=== PATIENT | female | born 1960 | race Caucasian/White ===

== ENCOUNTER 2016-02-26 13:18 | Emergency (ER) | payer BC ==
[~2016-02-26 13:18] MED LIST: ALIVTAB3 PO; CLAR1TAB2 PO; PREV30CA11 PO
[2016-02-26] MEDS ORDERED: ADACEL/BOOSTRIX VACCINE (DIPHTH/PERTUSS/ACELL/TETANUS)0.5ML SYR (90715) As Ordered ONE (14:47)
--- NOTE | 2016-02-26 14:53 | EDDOCDS ---
Nurse's Notes [facility] Name: Layne English Age: 55 yrs Sex: Female : 1960 Arrival Date: 02/26/2016 Time: 13:18 Bed PR2 Private MD: Elena Sales A Diagnosis: Laceration without foreign body of left index finger with damage to nail-AVULSION Presentation: 02/25 13:21 Presenting complaint: Patient states: states that cut her left index finger on ml6 mandolin. Adult Sepsis Screening: The patient does not have new or worsening altered mentation. Patient's respiratory rate is less than 22. Systolic blood pressure is greater than 100. Patient has a qSOFA score of 0- Negative Sepsis Screen. Suicide/Homicide risk assessment- the patient denies having any suicidal and/or homicidal ideations and does not present with any other emotional, behavioral or mental health complaints. Status: Patient is not a healthcare advisory services manager or dependent. Transition of care: patient was not received from another setting of care. 13:21 Acuity: SAI Level 4 ml6 13:21 Method Of Arrival: Walkin/Carried/Asstd ml6 Triage Assessment: 13:23 General: Appears in no apparent distress, Behavior is anxious, cooperative. Pain: ml6 Location: palmar aspect of distal phalanx of left index finger Pain currently is 8 out of 10 on a pain scale. Pain does not radiate. Quality of pain is described as aching, Pain began 30 min ago Is continuous Alleviated by nothing. Aggravated by increased activity. HIV screening NA for this visit Offered previously. Neurological: No deficits noted. Cardiovascular: No deficits noted. Respiratory: No deficits noted. Musculoskeletal: Circulation, motion, and sensation intact Capillary refill < 3 seconds is brisk in bilateral fingers toes Range of motion intact in all extremities. No deformity noted Swelling absent. Injury Description: Avulsion sustained to palmar aspect of distal phalanx of right index finger is. Historical: - Allergies: SULFA (SULFONAMIDES) (Anaphylaxis); - Home Meds: 1. lansoprazole 30 mg oral cpDR 1 cap once daily (Last dose: 02/26/2016 07:00) - PMHx: GERD; - PSHx: Cholecystectomy; Appendectomy; Laparoscopy; bone spur left foot; - Social history: Smoking status: Patient states was never smoker of tobacco. No barriers to communication noted, Speaks appropriately for age. - Family history: Not pertinent. - : Unable to assess if pt is on anticoagulants. Home medication list is obtained from the patient. - Exposure Risk Screening:: None identified. Screenin:51 Screening information is obtained from the patient. Fall risk: No risks identified. js13 Assistance ADL's: requires no assistance with activities of daily living. Abuse/DV Screen: The patient / caregiver reports he/she is: not in a situation that causes fear, pain or injury. Nutritional screening: No deficits noted. Advance Directives: There is no active DNR order. home support is adequate. Assessment: 14:51 General: Appears in no apparent distress, comfortable, Behavior is appropriate for age, js13 cooperative. Pain: Pain currently is 4 out of 10 on a pain scale. Neurological: Level of Consciousness is awake, alert. Respiratory: Airway is patent Respiratory effort is even, unlabored, Respiratory pattern is regular, symmetrical. Derm: Skin is pink, warm & dry. Musculoskeletal: Circulation, motion, and sensation intact Range of motion limited in palmar aspect of distal phalanx of left index finger. Vital Signs: 13:19 BP 165 / 91; Pulse 94; Resp 18 S; Temp 96.8(O); Pulse Ox 95% on R/A; Weight 90.72 kg gr2 (R); Height 5 ft. 3 in. (160.02 cm) (R); Pain 6/10; 14:49 BP 178 / 98; Pulse 81; Resp 20; Temp 97.4; Pulse Ox 96% ; Pain 9/10; jam1 13:19 Body Mass Index 35.43 (90.72 kg, 160.02 cm) gr2 Vitals: 13:19 Log In Time: February 26, 2016 at 13:19. gr2 ED Course: 13:18 Patient visited by Jovanna Naranjo. gr2 13:18 Elena Sales is Private Physician. gr2 13:18 Patient moved to Waiting gr2 13:21 Patient visited by Jovanna Naranjo. gr2 13:21 Patient moved to Pre RCE gr2 13:22 Triage Initiated ml6 13:25 Patient moved to PR2 / 26 ml6 14:13 Gus Sanchez PA is PHCP. btw 14:13 Benji Ga MD is Attending Physician. btw 14:14 Patient visited by Gus Sanchez PA. btw 14:43 Elena Sales is Referral Physician. btw 14:51 The patient / caregiver is instructed regarding the plan of care and ED course. js13 14:51 No IV's were initiated during this patient's visit. No procedures done that require js13 assistance. Administered Medications: 14:50 Drug: Tetanus- Diptheria-Acellular Pertussis 0.5 ml [diphth,pertussis(acel),tetanus 2.5 js13 Lf unit-8 mcg-5 Lf/0.5mL IM syringe (0.5 mL)] {Production Roustabout: [employer]. Exp: 04/05/2018. Lot #: [id number]. } Route: IM; Site: right deltoid; 14:51 Follow up: Response: No Adverse Reaction js13 Order Results: There are currently no results for this order. Outcome: 14:44 Discharge ordered by Provider. btw 14:51 Discharge Assessment: Patient awake, alert and oriented x 3. No cognitive and/or js13 functional deficits noted. Patient verbalized understanding of disposition instructions. patient administered narcotics - no. The following High Risk Discharge criteria are identified: None. Discharged to home ambulatory. Condition: stable. Discharge instructions given to patient, Instructed on discharge instructions, follow up and referral plans. medication usage, Demonstrated understanding of instructions, medications, Pt was receptive of discharge instructions/ teaching. No special radiology studies were completed. Property :Personal belongings accompany Pt. 14:53 Patient left the ED. js13 Signatures: Katie Castellanos, OR RN OR RN jam1 Иван Moncada, RN RN ml6 Gus Sanchez PA PA btw Genia GradyRN RN js13 Jovanna Naranjo gr2 MTDD
--- NOTE | 2016-02-26 14:53 | EDDOCDS ---
Physician Documentation [facility] Name: Layne English Age: 55 yrs Sex: Female : 1960 Arrival Date: 02/26/2016 Time: 13:18 Bed PR Private MD: Elena Sales A Disposition: 02/26/16 14:44 Discharged to Home/Self Care. Impression: Laceration without foreign body of left index finger with damage to nail - AVULSION. - Condition is Stable. - Discharge Instructions: Nail Avulsion Injury, Deep Skin Avulsion, VIS, Tetanus, Diphtheria (Td) - CDC. - Medication Reconciliation, Local Pharmacy Hours form. - Follow up: Elena Sales; When: 2 - 3 days; Reason: Wound/Symptom Recheck, Further diagnostic work-up, Recheck today's complaints, Continuance of care. - Problem is new. - Symptoms have improved. Historical: - Allergies: SULFA (SULFONAMIDES) (Anaphylaxis); - Home Meds: 1. lansoprazole 30 mg oral cpDR 1 cap once daily (Last dose: 02/26/2016 07:00) - PMHx: GERD; - PSHx: Cholecystectomy; Appendectomy; Laparoscopy; bone spur left foot; - Social history: Smoking status: Patient states was never smoker of tobacco. No barriers to communication noted, Speaks appropriately for age. - Family history: Not pertinent. - : Unable to assess if pt is on anticoagulants. Home medication list is obtained from the patient. - Exposure Risk Screening:: None identified. Vital Signs: 02/25 13:19 BP 165 / 91; Pulse 94; Resp 18 S; Temp 96.8(O); Pulse Ox 95% on R/A; Weight 90.72 kg / gr2 200 lbs (R); Height 5 ft. 3 in. (160.02 cm) (R); Pain 6/10; 14:49 BP 178 / 98; Pulse 81; Resp 20; Temp 97.4; Pulse Ox 96% ; Pain 9/10; jam1 13:19 Body Mass Index 35.43 (90.72 kg, 160.02 cm) gr2 Procedures: 14:41 Laceration repair:. btw Laceration: 14:41 Wound Repair of 1cm ( 0.4in ) avulsed laceration to left index finger, palmar aspect of btw distal phalanx of left index finger and left index fingernail. Profuse bleeding noted.. Distal neuro/vascular/tendon intact. Anesthesia: None with None. Wound prep: Extensive cleansing with hibiclenz by provider, Wound irrigation with saline by provider. Skin closed with 1 thin layer Gelfoam. Dressed with tube gauze, Telfa. Patient tolerated fair. MDM: 13:38 Fingers Ordered. EDMS 14:41 Tetanus- Diptheria-Acellular Pertussis 0.5 ml IM once; Routine booster 10-64yrs, >64 btw with child contact [employer] ordered. Administered Medications: 14:50 Drug: Tetanus- Diptheria-Acellular Pertussis 0.5 ml [diphth,pertussis(acel),tetanus 2.5 js13 Lf unit-8 mcg-5 Lf/0.5mL IM syringe (0.5 mL)] {Founder: [employer]. Exp: 04/05/2018. Lot #: [id number]. } Route: IM; Site: right deltoid; 14:51 Follow up: Response: No Adverse Reaction js13 Signatures: Dispatcher [employer] EDMS Иван Moncada, RN RN ml6 Gus Sanchez PA PA btw Genia GradyRN RN js13 MTDD
--- NOTE | 2016-02-26 15:48 | REP ---
Left index finger series: Four views. History: Soft tissue laceration. Findings: There is a soft tissue deficit at the distal tuft of the index finger. No bony fracture or opaque foreign body seen. Impression: Soft tissue amputation injury distal phalanx. No fracture or opaque foreign body seen. Signed by Javad Duque MD 02/26/2016 04:03 P
--- NOTE | 2016-02-28 15:54 | EDDOCDS ---
Physician Documentation [facility] Name: Layne English Age: 55 yrs Sex: Female : 1960 Arrival Date: 02/26/2016 Time: 13:18 Bed PR Private MD: Elena Sales A Disposition: 02/26/16 14:44 Discharged to Home/Self Care. Impression: Laceration without foreign body of left index finger with damage to nail - AVULSION. - Condition is Stable. - Discharge Instructions: Nail Avulsion Injury, Deep Skin Avulsion, VIS, Tetanus, Diphtheria (Td) - CDC. - Medication Reconciliation, Local Pharmacy Hours form. - Follow up: Elena Sales; When: 2 - 3 days; Reason: Wound/Symptom Recheck, Further diagnostic work-up, Recheck today's complaints, Continuance of care. - Problem is new. - Symptoms have improved. Historical: - Allergies: SULFA (SULFONAMIDES) (Anaphylaxis); - Home Meds: 1. lansoprazole 30 mg oral cpDR 1 cap once daily (Last dose: 02/26/2016 07:00) - PMHx: GERD; - PSHx: Cholecystectomy; Appendectomy; Laparoscopy; bone spur left foot; - Social history: Smoking status: Patient states was never smoker of tobacco. No barriers to communication noted, Speaks appropriately for age. - Family history: Not pertinent. - : Unable to assess if pt is on anticoagulants. Home medication list is obtained from the patient. - Exposure Risk Screening:: None identified. Vital Signs: 02/25 13:19 BP 165 / 91; Pulse 94; Resp 18 S; Temp 96.8(O); Pulse Ox 95% on R/A; Weight 90.72 kg / gr2 200 lbs (R); Height 5 ft. 3 in. (160.02 cm) (R); Pain 6/10; 14:49 BP 178 / 98; Pulse 81; Resp 20; Temp 97.4; Pulse Ox 96% ; Pain 9/10; jam1 13:19 Body Mass Index 35.43 (90.72 kg, 160.02 cm) gr2 Procedures: 14:41 Laceration repair:. btw Laceration: 14:41 Wound Repair of 1cm ( 0.4in ) avulsed laceration to left index finger, palmar aspect of btw distal phalanx of left index finger and left index fingernail. Profuse bleeding noted.. Distal neuro/vascular/tendon intact. Anesthesia: None with None. Wound prep: Extensive cleansing with hibiclenz by provider, Wound irrigation with saline by provider. Skin closed with 1 thin layer Gelfoam. Dressed with tube gauze, Telfa. Patient tolerated fair. MDM: 13:38 Fingers Ordered. EDMS 14:41 Tetanus- Diptheria-Acellular Pertussis 0.5 ml IM once; Routine booster 10-64yrs, >64 btw with child contact [employer] ordered. 15:06 [facility] Payment Agreement was scanned into [employer] and attached to record. lg 15:37 Financial registration complete. wong 21:57 T-Sheet-- Draft Copy was scanned into [employer]ogram and attached to record. klr Administered Medications: 14:50 Drug: Tetanus- Diptheria-Acellular Pertussis 0.5 ml [diphth,pertussis(acel),tetanus 2.5 js13 Lf unit-8 mcg-5 Lf/0.5mL IM syringe (0.5 mL)] {Assistant Professor Of Chemistry: [employer]. Exp: 04/05/2018. Lot #: [id number]. } Route: IM; Site: right deltoid; 14:51 Follow up: Response: No Adverse Reaction js13 Signatures: Dispatcher [employer] EDMS Maria Fernanda Galarza Reg Reg lg Lowe, Matthew, RN RN ml6 Gus Sanchez PA PA btw Genia Grady RN RN js13 Kylah Cisneros Kathie klr The chart was reviewed and I authenticate all verbal orders and agree with the evaluation and treatment provided.Attachments: 15:06 [facility] Payment Agreement lg 21:57 T-Sheet-- Draft Copy klr Chart Complete MTDD
--- NOTE | 2016-02-28 15:54 | EDDOCDS ---
Physician Documentation [facility] Name: Layne English Age: 55 yrs Sex: Female : 1960 Arrival Date: 02/26/2016 Time: 13:18 Bed PR Private MD: Elena Sales A Disposition: 02/26/16 14:44 Discharged to Home/Self Care. Impression: Laceration without foreign body of left index finger with damage to nail - AVULSION. - Condition is Stable. - Discharge Instructions: Nail Avulsion Injury, Deep Skin Avulsion, VIS, Tetanus, Diphtheria (Td) - CDC. - Medication Reconciliation, Local Pharmacy Hours form. - Follow up: Elena Sales; When: 2 - 3 days; Reason: Wound/Symptom Recheck, Further diagnostic work-up, Recheck today's complaints, Continuance of care. - Problem is new. - Symptoms have improved. Historical: - Allergies: SULFA (SULFONAMIDES) (Anaphylaxis); - Home Meds: 1. lansoprazole 30 mg oral cpDR 1 cap once daily (Last dose: 02/26/2016 07:00) - PMHx: GERD; - PSHx: Cholecystectomy; Appendectomy; Laparoscopy; bone spur left foot; - Social history: Smoking status: Patient states was never smoker of tobacco. No barriers to communication noted, Speaks appropriately for age. - Family history: Not pertinent. - : Unable to assess if pt is on anticoagulants. Home medication list is obtained from the patient. - Exposure Risk Screening:: None identified. Vital Signs: 02/25 13:19 BP 165 / 91; Pulse 94; Resp 18 S; Temp 96.8(O); Pulse Ox 95% on R/A; Weight 90.72 kg / gr2 200 lbs (R); Height 5 ft. 3 in. (160.02 cm) (R); Pain 6/10; 14:49 BP 178 / 98; Pulse 81; Resp 20; Temp 97.4; Pulse Ox 96% ; Pain 9/10; jam1 13:19 Body Mass Index 35.43 (90.72 kg, 160.02 cm) gr2 Procedures: 14:41 Laceration repair:. btw Laceration: 14:41 Wound Repair of 1cm ( 0.4in ) avulsed laceration to left index finger, palmar aspect of btw distal phalanx of left index finger and left index fingernail. Profuse bleeding noted.. Distal neuro/vascular/tendon intact. Anesthesia: None with None. Wound prep: Extensive cleansing with hibiclenz by provider, Wound irrigation with saline by provider. Skin closed with 1 thin layer Gelfoam. Dressed with tube gauze, Telfa. Patient tolerated fair. MDM: 13:38 Fingers Ordered. EDMS 14:41 Tetanus- Diptheria-Acellular Pertussis 0.5 ml IM once; Routine booster 10-64yrs, >64 btw with child contact [employer] ordered. 15:06 [facility] Payment Agreement was scanned into [employer] and attached to record. lg 15:37 Financial registration complete. wong 21:57 T-Sheet-- Draft Copy was scanned into [employer] and attached to record. klr Administered Medications: 14:50 Drug: Tetanus- Diptheria-Acellular Pertussis 0.5 ml [diphth,pertussis(acel),tetanus 2.5 js13 Lf unit-8 mcg-5 Lf/0.5mL IM syringe (0.5 mL)] {Furnace Puncher: [employer]. Exp: 04/05/2018. Lot #: [id number]. } Route: IM; Site: right deltoid; 14:51 Follow up: Response: No Adverse Reaction js13 Signatures: Dispatcher [employer] EDMS Maria Fernanda Galarza Reg Reg lg Lowe, Matthew, RN RN ml6 Gus Sanchez PA PA btw Genia Grady RN RN js13 Kylah Cisneros Kathie klr The chart was reviewed and I authenticate all verbal orders and agree with the evaluation and treatment provided.Attachments: 15:06 [facility] Payment Agreement lg 21:57 T-Sheet-- Draft Copy klr Chart Complete MTDD
--- NOTE | 2016-02-28 15:54 | EDDOCDS ---
Nurse's Notes Name: Layne English Age: 55 yrs Sex: Female : 1960 Arrival Date: 02/26/2016 Time: 13:18 Bed PR2 Private MD: Elena Sales A Diagnosis: Laceration without foreign body of left index finger with damage to nail-AVULSION Presentation: 02/25 13:21 Presenting complaint: Patient states: states that cut her left index finger on ml6 mandolin. Adult Sepsis Screening: The patient does not have new or worsening altered mentation. Patient's respiratory rate is less than 22. Systolic blood pressure is greater than 100. Patient has a qSOFA score of 0- Negative Sepsis Screen. Suicide/Homicide risk assessment- the patient denies having any suicidal and/or homicidal ideations and does not present with any other emotional, behavioral or mental health complaints. Status: Patient is not a event services manager or dependent. Transition of care: patient was not received from another setting of care. 13:21 Acuity: SAI Level 4 ml6 13:21 Method Of Arrival: Walkin/Carried/Asstd ml6 Triage Assessment: 13:23 General: Appears in no apparent distress, Behavior is anxious, cooperative. Pain: ml6 Location: palmar aspect of distal phalanx of left index finger Pain currently is 8 out of 10 on a pain scale. Pain does not radiate. Quality of pain is described as aching, Pain began 30 min ago Is continuous Alleviated by nothing. Aggravated by increased activity. HIV screening NA for this visit Offered previously. Neurological: No deficits noted. Cardiovascular: No deficits noted. Respiratory: No deficits noted. Musculoskeletal: Circulation, motion, and sensation intact Capillary refill < 3 seconds is brisk in bilateral fingers toes Range of motion intact in all extremities. No deformity noted Swelling absent. Injury Description: Avulsion sustained to palmar aspect of distal phalanx of right index finger is. Historical: - Allergies: SULFA (SULFONAMIDES) (Anaphylaxis); - Home Meds: 1. lansoprazole 30 mg oral cpDR 1 cap once daily (Last dose: 02/26/2016 07:00) - PMHx: GERD; - PSHx: Cholecystectomy; Appendectomy; Laparoscopy; bone spur left foot; - Social history: Smoking status: Patient states was never smoker of tobacco. No barriers to communication noted, Speaks appropriately for age. - Family history: Not pertinent. - : Unable to assess if pt is on anticoagulants. Home medication list is obtained from the patient. - Exposure Risk Screening:: None identified. Screenin:51 Screening information is obtained from the patient. Fall risk: No risks identified. js13 Assistance ADL's: requires no assistance with activities of daily living. Abuse/DV Screen: The patient / caregiver reports he/she is: not in a situation that causes fear, pain or injury. Nutritional screening: No deficits noted. Advance Directives: There is no active DNR order. home support is adequate. Assessment: 14:51 General: Appears in no apparent distress, comfortable, Behavior is appropriate for age, js13 cooperative. Pain: Pain currently is 4 out of 10 on a pain scale. Neurological: Level of Consciousness is awake, alert. Respiratory: Airway is patent Respiratory effort is even, unlabored, Respiratory pattern is regular, symmetrical. Derm: Skin is pink, warm & dry. Musculoskeletal: Circulation, motion, and sensation intact Range of motion limited in palmar aspect of distal phalanx of left index finger. Vital Signs: 13:19 BP 165 / 91; Pulse 94; Resp 18 S; Temp 96.8(O); Pulse Ox 95% on R/A; Weight 90.72 kg gr2 (R); Height 5 ft. 3 in. (160.02 cm) (R); Pain 6/10; 14:49 BP 178 / 98; Pulse 81; Resp 20; Temp 97.4; Pulse Ox 96% ; Pain 9/10; jam1 13:19 Body Mass Index 35.43 (90.72 kg, 160.02 cm) gr2 Vitals: 13:19 Log In Time: February 26, 2016 at 13:19. gr2 ED Course: 13:18 Patient visited by Jovanna Naranjo. gr2 13:18 Elena Sales is Private Physician. gr2 13:18 Patient moved to Waiting gr2 13:21 Patient visited by Jovanna Naranjo. gr2 13:21 Patient moved to Pre RCE gr2 13:22 Triage Initiated ml6 13:25 Patient moved to PR2 / 26 ml6 14:13 Gus Sanchez PA is PHCP. btw 14:13 Benji Ga MD is Attending Physician. btw 14:14 Patient visited by Gus Sanchez PA. btw 14:43 Elena Sales is Referral Physician. btw 14:51 The patient / caregiver is instructed regarding the plan of care and ED course. js13 14:51 No IV's were initiated during this patient's visit. No procedures done that require js13 assistance. 15:06 [facility] Payment Agreement was scanned into [employer] and attached to record. 16:20 Fingers Returned. EDAR 21:57 T-Sheet-- Draft Copy was scanned into [employer] and attached to record. klr Administered Medications: 14:50 Drug: Tetanus- Diptheria-Acellular Pertussis 0.5 ml [diphth,pertussis(acel),tetanus 2.5 js13 Lf unit-8 mcg-5 Lf/0.5mL IM syringe (0.5 mL)] {Core Inserter: [employer]. Exp: 04/05/2018. Lot #: [id number]. } Route: IM; Site: right deltoid; 14:51 Follow up: Response: No Adverse Reaction js13 Order Results: Radiology Order: Fingers Test: Fingers REASON FOR EXAMINATION: left index finger tip injury; Left index finger series: Four views.; ; History: Soft tissue laceration.; ; Findings: There is a soft tissue deficit at the distal tuft of the index finger.; No bony fracture or opaque foreign body seen.; ; Impression:; ; Soft tissue amputation injury distal phalanx. No fracture or opaque foreign body; seen.; ; ; Signed by; Javad Duque MD 02/26/2016 04:03 P; Outcome: 14:44 Discharge ordered by Provider. btw 14:51 Discharge Assessment: Patient awake, alert and oriented x 3. No cognitive and/or js13 functional deficits noted. Patient verbalized understanding of disposition instructions. patient administered narcotics - no. The following High Risk Discharge criteria are identified: None. Discharged to home ambulatory. Condition: stable. Discharge instructions given to patient, Instructed on discharge instructions, follow up and referral plans. medication usage, Demonstrated understanding of instructions, medications, Pt was receptive of discharge instructions/ teaching. No special radiology studies were completed. Property :Personal belongings accompany Pt. 14:53 Patient left the ED. js13 Signatures: Dispatcher [employer] EDMS Katie Castellanos, BRIM POUNCING MACHINE OPERATOR BRIM POUNCING MACHINE OPERATOR jam1 Maria Fernanda Galarza, Reg Reg lg Иван Moncada, JOSE FRANCISCO RN ml6 Gus Sanchez PA PA btw Sullivan, Jennifer, RN RN js13 Jovanna Naranjo gr2 Lidia Marion Chart Complete MTDD
== END 2016-02-26 14:53 | disposition home or self-care (01) ==
LOC: M ED 13:18
DX: S61.211A Laceration without foreign body of left index finger without damage to nail, initial encounter (principal); W26.8XXA Contact with other sharp object(s), not elsewhere classified, initial encounter; Y92.010 Kitchen of single-family (private) house as the place of occurrence of the external cause; Y93.G1 Activity, food preparation and clean up; Y99.8 Other external cause status; K21.9 Gastro-esophageal reflux disease without esophagitis; Z79.899 Other long term (current) drug therapy; Z88.2 Allergy status to sulfonamides

== ENCOUNTER → 2017-06-06 | Outpatient (CLI) | payer BC ==
[2017-06-06 13:12] LABS: BASO # 0.1 10^3/uL (0.0-0.2); BASO % 0.5 % (0.0-1.0); EOS # 0.1 10^3/uL (0.0-0.50); HEMOGLOBIN 13.5 g/dl (12.0-15.5); IMMATURE GRANULOCYTE % 0.6 % (0-3.0); LYMPH # 2.3 10^3/uL (1.5-4.5); LYMPH % 18.4 % (24.0-44.0); MEAN CORPUSCULAR HEMOGLOBIN 28.9 pg (27.0-33.0); MEAN CORPUSCULAR HGB CONC 32.1 g/dl (32.0-36.5); MEAN CORPUSCULAR VOLUME 89.9 fl (80.0-96.0); MONO # 0.8 10^3/uL (0.0-0.8); MONO % 6.2 % (0.0-5.0); NEUTROPHILS # 9.1 10^3/uL (1.8-7.7); NEUTROPHILS % 73.3 % (36.0-66.0); PLATELET COUNT, AUTOMATED 277 10^3/uL (150-450); RED BLOOD COUNT 4.67 10^6/uL (4.00-5.40); RED CELL DISTRIBUTION WIDTH 14.1 % (11.5-14.5); WHITE BLOOD COUNT 12.4 10^3/uL (4.0-10.0)
[2017-06-06 13:34] LABS: ERYTHROCYTE SEDIMENTATION RATE 4 mm/hr (0-30)
[2017-06-06 13:37] LABS: CONTROL LINE MONO RF C INT CTR LINE PRESENT; MONO REFLEX EBV COMP NEGATIVE (NEGATIVE)
[2017-06-06 13:55] LABS: FREE T4 1.13 NG/DL (0.76-1.46)
[2017-06-12 00:06] LABS: ANTINUCLEAR ANTIBODIES DIRECT Negative (Negative); EBV VIRAL CAPSID AG IgM <36.0 U/mL (0.0-35.9); HLA-B27 Negative (.); Lyme Disease IgG/IgM Antibodie <0.91 ISR (0.00-0.90); Lyme Disease IgM Ab Quantitati <0.80 index (0.00-0.79)
== END ==
LOC: M SMT 10:40
DX: R21 Rash and other nonspecific skin eruption (principal); M25.50 Pain in unspecified joint; L40.8 Other psoriasis
CPT/HCPCS: 84443

== ENCOUNTER → 2017-06-18 | Outpatient (REF) | payer BC | LOC: M LAB REF 17:46 | DX: J03.90 Acute tonsillitis, unspecified (principal) | CPT/HCPCS: 87070 ==

== ENCOUNTER → 2018-03-31 | Outpatient (REF) | payer BC ==
[~2018-03-31] MED LIST changes: +PREV1CAP PO; -PREV30CA11 PO
[2018-03-31 12:25] LABS: BASO # 0.1 10^3/uL (0.0-0.2); BASO % 0.9 % (0.0-1.0); EOS # 0.1 10^3/uL (0.0-0.50); EOS % 2.1 % (0.0-3.0); HEMOGLOBIN 13.1 g/dl (12.0-15.5); LYMPH # 1.7 10^3/uL (1.5-4.5); LYMPH % 31.6 % (24.0-44.0); MEAN CORPUSCULAR HEMOGLOBIN 28.9 pg (27.0-33.0); MEAN CORPUSCULAR VOLUME 90.5 fl (80.0-96.0); MONO # 0.5 10^3/uL (0.0-0.8); NEUTROPHILS # 2.9 10^3/uL (1.8-7.7); PLATELET COUNT, AUTOMATED 237 10^3/uL (150-450); RED BLOOD COUNT 4.53 10^6/uL (4.00-5.40); WHITE BLOOD COUNT 5.3 10^3/uL (4.0-10.0)
[2018-03-31 12:44] LABS: ALBUMIN 3.7 GM/DL (3.2-5.2); ALT/SGPT 42 U/L (12-78); BILIRUBIN,TOTAL 0.4 MG/DL (0.2-1.0); BLOOD UREA NITROGEN 15 MG/DL (7-18); CARBON DIOXIDE LEVEL 27 MEQ/L (21-32); CHLORIDE LEVEL 108 MEQ/L (98-107); CHOLESTEROL LEVEL 251 MG/DL (<200); CHOLESTEROL RISK RATIO 3.302 (<5); CREATININE FOR GFR 0.74 MG/DL (0.55-1.30); FREE T4 1.07 NG/DL (0.76-1.46); GLOMERULAR FILTRATION RATE > 60.0 (>51); GLUCOSE, FASTING 90 MG/DL (70-100); HDL CHOLESTEROL 76 MG/DL (>40); LDL CHOLESTEROL 156 MG/DL (<100); NON-HDL-C 175 MG/DL; POTASSIUM SERUM 4.3 MEQ/L (3.5-5.1); SODIUM LEVEL 141 MEQ/L (136-145); TOTAL PROTEIN 6.9 GM/DL (6.4-8.2); TRIGLYCERIDES LEVEL 95 MG/DL (<150)
== END ==
LOC: M LABDRAW1 08:52
PROVIDERS: ATTEND Family Medicine
DX: Z13.29 Encounter for screening for other suspected endocrine disorder (principal); Z13.220 Encounter for screening for lipoid disorders; Z13.0 Encounter for screening for diseases of the blood and blood-forming organs and certain disorders involving the immune mechanism

== ENCOUNTER → 2018-07-11 | Outpatient (REF) | payer BC ==
[2018-07-11 11:21] LABS: CHOLESTEROL RISK RATIO 3.357 (<5)
== END ==
LOC: M LABDRAW1 10:30
PROVIDERS: ATTEND Family Medicine
DX: E78.00 Pure hypercholesterolemia, unspecified (principal)

== ENCOUNTER → 2019-04-28 | Outpatient (REF) | payer BC | LOC: M LABDRAW1 09:44 | PROVIDERS: ATTEND Allergy & Immunology Allergy | DX: T78.1XXA Other adverse food reactions, not elsewhere classified, initial encounter (principal); L50.9 Urticaria, unspecified ==

== ENCOUNTER → 2019-07-20 | Outpatient (CLI) | payer BC ==
[2019-07-20 11:29] LABS: BASO # 0.1 10^3/uL (0.0-0.2); BASO % 1.2 % (0.0-1.0); EOS # 0.1 10^3/uL (0.0-0.5); EOS % 1.8 % (0.0-3.0); HEMOGLOBIN 13.6 g/dl (12.0-15.5); LYMPH # 1.8 10^3/uL (1.5-5.0); LYMPH % 34.4 % (24.0-44.0); MEAN CORPUSCULAR HEMOGLOBIN 29.9 pg (27.0-33.0); MEAN CORPUSCULAR HGB CONC 33.2 g/dl (32.0-36.5); MEAN CORPUSCULAR VOLUME 90.1 fl (80.0-96.0); MONO # 0.5 10^3/uL (0.0-0.8); MONO % 9.6 % (0.0-5.0); NEUTROPHILS # 2.7 10^3/uL (1.5-8.5); NEUTROPHILS % 52.6 % (36.0-66.0); PLATELET COUNT, AUTOMATED 252 10^3/uL (150-450); RED BLOOD COUNT 4.55 10^6/uL (4.00-5.40); WHITE BLOOD COUNT 5.1 10^3/uL (4.0-10.0)
[2019-07-20 12:30] LABS: ALBUMIN 3.6 GM/DL (3.2-5.2); ALT/SGPT 39 U/L (12-78); BILIRUBIN,TOTAL 0.5 MG/DL (0.2-1.0); BLOOD UREA NITROGEN 16 MG/DL (7-18); CARBON DIOXIDE LEVEL 27 MEQ/L (21-32); CHLORIDE LEVEL 108 MEQ/L (98-107); CHOLESTEROL LEVEL 258 MG/DL (<200); CHOLESTEROL RISK RATIO 3.265 (<5); CREATININE FOR GFR 0.73 MG/DL (0.55-1.30); FREE T4 1.03 NG/DL (0.76-1.46); GLOMERULAR FILTRATION RATE > 60.0 (>51); GLUCOSE, FASTING 88 MG/DL (70-100); HDL CHOLESTEROL 79 MG/DL (>40); LDL CHOLESTEROL 166 MG/DL (<100); NON-HDL-C 179 MG/DL; POTASSIUM SERUM 4.6 MEQ/L (3.5-5.1); SODIUM LEVEL 142 MEQ/L (136-145); TOTAL PROTEIN 6.9 GM/DL (6.4-8.2); TRIGLYCERIDES LEVEL 64 MG/DL (<150)
== END ==
LOC: M LRY 09:30
PROVIDERS: ATTEND Family Medicine
DX: K21.9 Gastro-esophageal reflux disease without esophagitis (principal); E78.00 Pure hypercholesterolemia, unspecified

== ENCOUNTER → 2020-04-13 | Outpatient (CLI) | payer BC ==
[2020-04-13 14:01] LABS: BASO % 0.6 % (0.0-1.0); EOS # 0.1 10^3/uL (0.0-0.5); EOS % 1.3 % (0.0-3.0); HEMATOCRIT 42.5 % (36.0-47.0); HEMOGLOBIN 13.5 g/dl (12.0-15.5); LYMPH % 32.3 % (24.0-44.0); MEAN CORPUSCULAR HEMOGLOBIN 29.2 pg (27.0-33.0); MEAN CORPUSCULAR HGB CONC 31.8 g/dl (32.0-36.5); MEAN CORPUSCULAR VOLUME 91.8 fl (80.0-96.0); MONO # 0.6 10^3/uL (0.0-0.8); MONO % 8.9 % (2.0-8.0); NEUTROPHILS # 3.5 10^3/uL (1.5-8.5); NEUTROPHILS % 56.7 % (36.0-66.0); PLATELET COUNT, AUTOMATED 223 10^3/uL (150-450); RED BLOOD COUNT 4.63 10^6/uL (4.00-5.40); WHITE BLOOD COUNT 6.2 10^3/uL (4.0-10.0)
[2020-04-13 14:27] LABS: FREE T4 1.07 NG/DL (0.76-1.46)
[2020-04-13 14:28] LABS: THYROGLOBULIN ANTIBODY < 15.0 U/ML (<60.0); THYROID PEROXIDASE ANTIBODY < 28.0 U/ML (<60.0)
== END ==
LOC: M PLALAB 11:10
PROVIDERS: ATTEND Family Medicine
DX: R49.0 Dysphonia (principal); E04.9 Nontoxic goiter, unspecified

== ENCOUNTER → 2020-04-28 | Outpatient (CLI) | payer BC ==
--- NOTE | 2020-04-28 15:08 | REP ---
INDICATION: NONTOXIC GOITER, UNSPECIFIED. COMPARISON: None. TECHNIQUE: Real-time sonographic evaluation of thyroid performed. FINDINGS: Right lobe of the thyroid measures 5.0 x 1.8 x 1.6 cm, left lobe 4.3 x 1.6 x 1.4 cm. In the mid right lobe there is a 4 mm hypoechoic nodule with an adjacent 2 mm cyst. There is a 3 mm cyst in the mid left lobe, a 3 mm cyst in the left lower pole and a 5 mm cyst in the isthmus. IMPRESSION: Benign subcentimeter cysts bilaterally, as well as a benign 4 mm hypoechoic nodule in the mid right lobe. <Electronically signed by Richard Samuel > 04/28/20 [id number]
== END ==
LOC: M RAD 14:19
PROVIDERS: ATTEND Family Medicine
DX: E04.9 Nontoxic goiter, unspecified (principal)

== ENCOUNTER → 2020-05-20 | Outpatient (CLI) | payer BC ==
[2020-05-20 14:31] LABS: BLOOD UREA NITROGEN 19 MG/DL (7-18); CALCIUM LEVEL 9.2 MG/DL (8.8-10.2); CARBON DIOXIDE LEVEL 28 MEQ/L (21-32); CHLORIDE LEVEL 106 MEQ/L (98-107); CREATININE FOR GFR 0.77 MG/DL (0.55-1.30); GLOMERULAR FILTRATION RATE > 60.0 (>45); GLUCOSE, FASTING 81 MG/DL (70-100); MAGNESIUM LEVEL 2.2 MG/DL (1.8-2.4); POTASSIUM SERUM 4.6 MEQ/L (3.5-5.1); SODIUM LEVEL 140 MEQ/L (136-145)
[2020-05-20 14:49] LABS: TOTAL 25(OH) VITAMIN D 30.2 NG/ML (30.0-100.0)
[2020-05-20 15:08] LABS: VITAMIN B12 LEVEL 977 PG/ML (247-911)
== END ==
LOC: M PLALAB 09:06
PROVIDERS: ATTEND Internal Medicine Gastroenterology
DX: R05 Cough (principal); K44.9 Diaphragmatic hernia without obstruction or gangrene; R13.10 Dysphagia, unspecified; K21.9 Gastro-esophageal reflux disease without esophagitis; Z86.010 Personal history of colon polyps; E56.9 Vitamin deficiency, unspecified

== ENCOUNTER 2020-06-07 08:30 | Outpatient (RCR) | payer BC | END 2020-06-17 | LOC: M ST 08:30 | PROVIDERS: ATTEND Otolaryngology | DX: R49.0 Dysphonia (principal) ==

== ENCOUNTER → 2020-10-31 | Outpatient (CLI) | payer BC ==
[2020-10-31 12:19] LABS: ALBUMIN 3.4 GM/DL (3.2-5.2); ALT/SGPT 37 U/L (12-78); BILIRUBIN,TOTAL 0.5 MG/DL (0.2-1.0); BLOOD UREA NITROGEN 18 MG/DL (7-18); CALCIUM LEVEL 8.9 MG/DL (8.8-10.2); CARBON DIOXIDE LEVEL 24 MEQ/L (21-32); CHLORIDE LEVEL 109 MEQ/L (98-107); CREATININE FOR GFR 0.78 MG/DL (0.55-1.30); FREE T4 0.94 NG/DL (0.76-1.46); GLOMERULAR FILTRATION RATE > 60.0 (>45); GLUCOSE, FASTING 88 MG/DL (70-100); POTASSIUM SERUM 4.3 MEQ/L (3.5-5.1); SODIUM LEVEL 142 MEQ/L (136-145); TOTAL PROTEIN 6.6 GM/DL (6.4-8.2)
[2020-10-31 18:26] LABS: HEMOGLOBIN A1c 5.8 %
== END ==
LOC: M PLALAB 08:42
PROVIDERS: ATTEND Physician Assistant
DX: E78.00 Pure hypercholesterolemia, unspecified (principal); E66.09 Other obesity due to excess calories

== ENCOUNTER → 2020-12-08 | Outpatient (REF) | payer BC | LOC: M SFHCWAGY 13:21 | PROVIDERS: ATTEND Nurse Practitioner Women's Health | DX: Z12.4 Encounter for screening for malignant neoplasm of cervix (principal); N95.2 Postmenopausal atrophic vaginitis | CPT/HCPCS: 87624; G0123 ==

== ENCOUNTER 2021-01-05 11:26 | Outpatient (CLI) | payer BC ==
[~2021-01-05] VITALS: Ht 160 cm; Wt 90.7 kg
[~2021-01-05 11:26] MED LIST changes: +ALBUTEROL 90 MCG/ACT 8GM HFA INHALER INH PRN; +ALBUTEROL SULFATE 2.5 MG/0.5 ML INH NEB SOLN INH PRN; +EPINEPHrine INJ 1 MG/ML 1ML AMP IM PRN; +NS 1,000 ML IV SCH; +diphenhydrAMINE 50MG/ML VIAL (J1200) IV PRN; +methylPREDNISolone 125MG 2ML VIAL IV PRN
[2021-01-05 11:47] VITALS: BP 147/82
[2021-01-05] MEDS ORDERED: CASIRIVIMAB (REGN10933) 600 MG, IMDEVIMAB (REGN10987) 600 MG in NS 250 ML IV ONE (12:00)
[2021-01-05 12:17] VITALS: BP 125/65
[2021-01-05 12:47] VITALS: BP 125/77
[2021-01-05 13:47] VITALS: BP 140/80
== END 2021-01-05 13:47 | disposition home or self-care (01) ==
LOC: M OPCLI4PR 11:26
PROVIDERS: ATTEND Family Medicine
DX: U07.1 COVID-19 (principal); Z88.2 Allergy status to sulfonamides

== ENCOUNTER → 2021-04-20 | Outpatient (CLI) | payer BC ==
[~2021-04-20] MED LIST changes: -ALBUTEROL 90 MCG/ACT 8GM HFA INHALER INH PRN; -ALBUTEROL SULFATE 2.5 MG/0.5 ML INH NEB SOLN INH PRN; -EPINEPHrine INJ 1 MG/ML 1ML AMP IM PRN; -NS 1,000 ML IV SCH; -diphenhydrAMINE 50MG/ML VIAL (J1200) IV PRN; -methylPREDNISolone 125MG 2ML VIAL IV PRN
[2021-04-20 13:58] LABS: BASO % 0.6 % (0.0-1.0); EOS # 0.1 10^3/uL (0.0-0.5); EOS % 0.9 % (0.0-3.0); HEMATOCRIT 42.3 % (36.0-47.0); HEMOGLOBIN 13.6 g/dl (12.0-15.5); LYMPH # 1.8 10^3/uL (1.5-5.0); LYMPH % 26.6 % (24.0-44.0); MEAN CORPUSCULAR HEMOGLOBIN 28.8 pg (27.0-33.0); MEAN CORPUSCULAR HGB CONC 32.2 g/dl (32.0-36.5); MEAN CORPUSCULAR VOLUME 89.6 fl (80.0-96.0); MONO # 0.5 10^3/uL (0.0-0.8); MONO % 8.2 % (2.0-8.0); NEUTROPHILS # 4.2 10^3/uL (1.5-8.5); NEUTROPHILS % 63.5 % (36.0-66.0); PLATELET COUNT, AUTOMATED 255 10^3/uL (150-450); RED BLOOD COUNT 4.72 10^6/uL (4.00-5.40); WHITE BLOOD COUNT 6.6 10^3/uL (4.0-10.0)
[2021-04-20 14:02] LABS: APPEARANCE, URINE CLEAR (CLEAR); BACTERIA, URINE AUTO 1+ (NEGATIVE); BILIRUBIN, URINE AUTO NEGATIVE (NEGATIVE); BLOOD, URINE BLOOD NEGATIVE (NEGATIVE); COLOR, URINE COLORLESS (YELLOW); GLUCOSE, URINE (UA) AUTO NEGATIVE (NEGATIVE); KETONE, URINE AUTO NEGATIVE (NEGATIVE); LEUKOCYTE ESTERASE, URINE AUTO TRACE (NEGATIVE); NITRITE, URINE AUTO NEGATIVE (NEGATIVE); PROTEIN, URINE AUTO NEGATIVE (NEGATIVE); RBC, URINE AUTO 0 /HPF (0-3); SPECIFIC GRAVITY URINE AUTO 1.003 (1.002-1.035); SQUAMOUS EPITHELIAL CELL UR AU 0 /HPF (0-6); UROBILINOGEN, URINE AUTO 0.2 mg/dL (0.0-2.0); WBC, URINE AUTO 2 /HPF (0-3)
[2021-04-20 15:17] LABS: ALBUMIN 3.9 GM/DL (3.2-5.2); ALT/SGPT 34 U/L (12-78); AMYLASE 24 U/L (25-115); BILIRUBIN,TOTAL 0.4 MG/DL (0.2-1.0); BLOOD UREA NITROGEN 14 MG/DL (7-18); CALCIUM LEVEL 9.8 MG/DL (8.8-10.2); CARBON DIOXIDE LEVEL 28 MEQ/L (21-32); CHLORIDE LEVEL 107 MEQ/L (98-107); GLOMERULAR FILTRATION RATE > 60.0 (>45); GLUCOSE, FASTING 83 MG/DL (70-100); LIPASE 88 U/L (73-393); POTASSIUM SERUM 4.5 MEQ/L (3.5-5.1); SODIUM LEVEL 141 MEQ/L (136-145); TOTAL PROTEIN 7.3 GM/DL (6.4-8.2)
== END ==
LOC: M RAD 12:47
PROVIDERS: ATTEND Nurse Practitioner Adult Health
DX: R10.11 Right upper quadrant pain (principal)

== ENCOUNTER → 2021-10-02 | Outpatient (REF) | payer BC | LOC: M LAB REF 15:58 | PROVIDERS: ATTEND Physician Assistant | DX: B34.9 Viral infection, unspecified (principal); J02.9 Acute pharyngitis, unspecified ==

== ENCOUNTER → 2022-03-29 | Outpatient (CLI) | payer OTHER | LOC: M WHC 10:05 | PROVIDERS: ATTEND Advanced Practice Midwife | DX: Z12.31 Encounter for screening mammogram for malignant neoplasm of breast (principal) ==

== ENCOUNTER → 2022-04-05 | Outpatient (REF) | payer OTHER | LOC: M LAB REF 10:59 | PROVIDERS: ATTEND Physician Assistant | DX: B34.9 Viral infection, unspecified (principal) ==

== ENCOUNTER → 2022-09-28 | Outpatient (CLI) | payer OTHER ==
[2022-09-28 11:21] LABS: BASO # 0.1 10^3/uL (0.0-0.2); BASO % 1.1 % (0.0-1.0); EOS # 0.1 10^3/uL (0.0-0.5); EOS % 2.2 % (0.0-3.0); HEMATOCRIT 41.9 % (36.0-47.0); HEMOGLOBIN 13.3 g/dl (12.0-15.5); LYMPH % 36.2 % (24.0-44.0); MEAN CORPUSCULAR HEMOGLOBIN 29.2 pg (27.0-33.0); MEAN CORPUSCULAR HGB CONC 31.7 g/dl (32.0-36.5); MEAN CORPUSCULAR VOLUME 91.9 fl (80.0-96.0); MONO # 0.5 10^3/uL (0.0-0.8); MONO % 9.7 % (2.0-8.0); NEUTROPHILS # 2.8 10^3/uL (1.5-8.5); NEUTROPHILS % 50.4 % (36.0-66.0); PLATELET COUNT, AUTOMATED 235 10^3/uL (150-450); RED BLOOD COUNT 4.56 10^6/uL (4.00-5.40); WHITE BLOOD COUNT 5.6 10^3/uL (4.0-10.0)
[2022-09-28 11:46] LABS: FREE T4 1.22 NG/DL (0.89-1.76); THYROID STIMULATING HORMONE 3.187 uIU/ML (0.55-4.78)
[2022-09-28 11:47] LABS: ALBUMIN 3.7 G/DL (3.2-5.2); ALKALINE PHOSPHATASE 79 U/L (46-116); ALT/SGPT 21 U/L (7.0-40); AST/SGOT 10 U/L (<34); BILIRUBIN,TOTAL 0.5 MG/DL (0.3-1.2); BLOOD UREA NITROGEN 18 MG/DL (9-23); CALCIUM LEVEL 9.2 MG/DL (8.3-10.6); CARBON DIOXIDE LEVEL 29 MMOL/L (20-31); CHLORIDE LEVEL 107 MMOL/L (98-107); CHOLESTEROL LEVEL 251 MG/DL (<200); CHOLESTEROL RISK RATIO 3.62 (<5); CREATININE FOR GFR 0.84 MG/DL (0.55-1.30); GLOMERULAR FILTRATION RATE > 60.0 (>45); GLUCOSE, FASTING 88 MG/DL (74-106); HDL CHOLESTEROL 69.3 MG/DL (>40); LDL CHOLESTEROL 167.9 MG/DL (<100); NON-HDL-C 181.7 MG/DL; POTASSIUM SERUM 4.5 MMOL/L (3.5-5.1); SODIUM LEVEL 140 MMOL/L (136-145); TOTAL PROTEIN 6.7 G/DL (5.7-8.2); TRIGLYCERIDES LEVEL 69 MG/DL (<150)
== END ==
LOC: M PLALAB 07:47
PROVIDERS: ATTEND Nurse Practitioner Adult Health
DX: I10 Essential (primary) hypertension (principal); E66.09 Other obesity due to excess calories

== ENCOUNTER → 2022-09-28 | Outpatient (CLI) | payer OTHER ==
[2022-10-01 16:10] LABS: ANCA-ATYPICAL <1:20 titer (Neg:<1:20); ANTI-SACCHAROMYCES CEREV. IgA <20.0 Units (0.0-24.9); ANTI-SACCHAROMYCES CEREV. IgG <20.0 Units (0.0-24.9); CYTOPLASMIC NEUTROP AB ANCA-C <1:20 titer (Neg:<1:20); PERINUCLEAR AB ANCA-P <1:20 titer (Neg:<1:20)
== END ==
LOC: M PLALAB 07:50
PROVIDERS: ATTEND Internal Medicine Gastroenterology
DX: K44.9 Diaphragmatic hernia without obstruction or gangrene (principal); R05.9 Cough, unspecified; K21.9 Gastro-esophageal reflux disease without esophagitis; Z86.010 Personal history of colon polyps; K63.3 Ulcer of intestine; R13.10 Dysphagia, unspecified

== ENCOUNTER → 2023-04-24 | Outpatient (CLI) | payer OTHER | LOC: M WHC 11:16 | PROVIDERS: ATTEND Nurse Practitioner Family | DX: M81.0 Age-related osteoporosis without current pathological fracture (principal) ==

== ENCOUNTER → 2023-09-19 | Outpatient (REF) | payer OTHER | LOC: M LAB REF 12:44 | PROVIDERS: ATTEND Physician Assistant | DX: B34.9 Viral infection, unspecified (principal) ==

== ENCOUNTER → 2024-01-27 | Outpatient (REF) | payer OTHER | LOC: M SFHCDERM 08:04 | PROVIDERS: ATTEND Nurse Practitioner Family | DX: C44.329 Squamous cell carcinoma of skin of other parts of face (principal) ==

== ENCOUNTER → 2024-04-07 | Outpatient (CLI) | payer OTHER | LOC: M PLAIMG 09:04 | PROVIDERS: ATTEND Family Medicine | DX: M76.52 Patellar tendinitis, left knee (principal); M25.561 Pain in right knee ==

== ENCOUNTER → 2024-04-28 | Outpatient (REF) | payer OTHER | LOC: M SFHCWAGY 15:55 | PROVIDERS: ATTEND Nurse Practitioner Family | DX: Z12.4 Encounter for screening for malignant neoplasm of cervix (principal); N95.2 Postmenopausal atrophic vaginitis | CPT/HCPCS: 87624; G0123 ==

== ENCOUNTER → 2024-04-28 | Outpatient (CLI) | payer OTHER | LOC: M WHC 08:48 | PROVIDERS: ATTEND Nurse Practitioner Family | DX: Z12.31 Encounter for screening mammogram for malignant neoplasm of breast (principal); R92.313 Mammographic fatty tissue density, bilateral breasts ==

== ENCOUNTER → 2024-04-28 | Outpatient (CLI) | payer OTHER | LOC: M PLALAB 10:33 | PROVIDERS: ATTEND Nurse Practitioner Family | DX: Z90.49 Acquired absence of other specified parts of digestive tract (principal); Z80.41 Family history of malignant neoplasm of ovary ==

== ENCOUNTER → 2024-05-25 | Outpatient (CLI) | payer OTHER | LOC: M WHC 07:59 | PROVIDERS: ATTEND Nurse Practitioner Family | DX: Z12.79 Encounter for screening for malignant neoplasm of other genitourinary organs (principal); Z80.41 Family history of malignant neoplasm of ovary; D25.9 Leiomyoma of uterus, unspecified ==

== ENCOUNTER → 2024-10-05 | Outpatient (REF) | payer OTHER | LOC: M SFHCDERM 18:16 | PROVIDERS: ATTEND Nurse Practitioner Family | DX: D49.2 Neoplasm of unspecified behavior of bone, soft tissue, and skin (principal) ==